=== PATIENT | male | born 1965 | race American Indian/Alaskan Native ===

== ENCOUNTER 2020-06-07 10:29 | Emergency (ER) | payer OTHER ==
[~2020-06-07] VITALS: Ht 160 cm; Wt 81.6 kg
[~2020-06-07 10:29] MED LIST: ERYTHROMYCIN3.5 GM OS; KLOR-CON M1010 MEQ PO; LISINOPRIL5 MG PO
--- OUTSIDE RECORDS SUMMARY | 2020-06-07 10:32 | XMS ---
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 Franki has no Care Guidelines for this patient. Kendell VISIT COUNT (12 MO.) 1 ASHWINI Johnson TOTAL 1 NOTE: Visits indicate total known visits. ED/UCC VISIT TRACKING (12 MO.) 06/07/2020 10:30 [facility] [place] TYPE: Emergency COMPLAINT: - POSSIBLE UTI INPATIENT VISIT TRACKING (12 MO.) No inpatient visits to display in this time frame [id number]
[2020-06-07] MEDS ORDERED: PYRIDIUM200 MG PO (11:59)
[2020-06-07] MEDS ORDERED: BACTRIM DS TAB1 EACH PO (11:59)
== END 2020-06-07 12:12 | disposition home or self-care (01) ==
LOC: ED 10:29
DX: N39.0 Urinary tract infection, site not specified (principal); I10 Essential (primary) hypertension
CPT/HCPCS: 81001; 87077; 87088; 87186; 99283

== ENCOUNTER 2024-05-06 08:00 | Emergency (ER) | payer OTHER ==
[~2024-05-06] VITALS: Ht 160 cm; Wt 88.0 kg
[~2024-05-06 08:00] MED LIST changes: +BACTRIM DS TAB1 EACH PO; +PYRIDIUM200 MG PO
--- OUTSIDE RECORDS SUMMARY | 2024-05-06 08:07 | XMS ---
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 Franki has no Care Guidelines for this patient. Kendell VISIT COUNT (12 MO.) 1 ASHWINI Johnson TOTAL 1 NOTE: Visits indicate total known visits. ED/C VISIT TRACKING (12 MO.) 05/06/2024 08:01 [facility] [place] TYPE: Emergency COMPLAINT: - BACK PAIN INPATIENT VISIT TRACKING (12 MO.) No inpatient visits to display in this time frame [id number]
[2024-05-06] MEDS ORDERED: HYDROCODONE/ACETA 7.5/325 TAB PO ONE (08:30)
[2024-05-06] MEDS ORDERED: IBUPROFEN 400 MG TAB PO ONE (08:30)
[2024-05-06] MEDS ORDERED: HYDROCODON-ACE1 EA11 PO (09:13)
[2024-05-06 09:24] VITALS: BP 176/121
== END 2024-05-06 09:26 | disposition home or self-care (01) ==
LOC: ED 08:00
DX: S43.102A Unspecified dislocation of left acromioclavicular joint, initial encounter (principal); V13.4XXA Pedal cycle driver injured in collision with car, pick-up truck or van in traffic accident, initial encounter; Y93.55 Activity, bike riding; I10 Essential (primary) hypertension
CPT/HCPCS: 73030; 99283; A9270